=== PATIENT | female | born 1950 | race Caucasian/White ===

== ENCOUNTER → 2016-07-12 | Outpatient (CLI) | payer MEDICARE, OTHER ==
[~2016-07-12] MED LIST: ACETAMINOPHEN &1 TA1 PO; ASPIRIN 81MG TA81 MG PO; FLEXERIL10 MG PO; GEMFIBROZIL600 MG PO; GLUCOPHAGE 850850 MG PO; LANTUS INS100 UNITS/ SC; LASIX 40MG. TAB40 MG PO; LEVOTHYROXINE0.1 MG PO; LIPITOR20 MG PO; LISINOPRIL 20MG20 MG PO; METOPROLOL 25 M25 MG PO; MICRO-K 10 MEQ10 MEQ PO; NEURONTIN800 MG PO; OMEPRAZOLE40 MG PO; OSENI PO; PLAVIX 75MG TAB75 MG PO; QUALITY CHOICE PO; SINEMET 10/1001 TAB PO; SYMBICORT1 AE1 IH; TOFRANIL50 MG PO; TRAZODONE100 MG PO; XANAX 1MG TABLET1 MG PO; ZYLOPRIM 300MG300 MG PO
[2016-07-12 15:50] LABS: AMPHETAMINES/METAMPHETAMINES NEGATIVE ng/mL (<1000)
== END ==
LOC: LAB 14:36
PROVIDERS: Anesthesiology
DX: Z79.899 Other long term (current) drug therapy (principal)